=== PATIENT | male | born 1995 ===

== ENCOUNTER 2021-07-06 11:30 | Emergency (ER) | payer SELFPAY ==
[2021-07-06 13:51] VITALS: BP 104/60
[2021-07-07] MEDS ORDERED: MORPHINE 4 MG/1 ML INJ IV ONE (18:04)
[2021-07-07] MEDS ORDERED: ONDANSETRON 4 MG/2 ML INJ IV ONE (18:04)
[2021-07-07] MEDS ORDERED: SODIUM CHLORIDE 0.9% 1000 ML 1,000 ML IV ONE (18:04)
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
[2021-07-07 19:11] LABS: Basophils % (Auto) 0.6 % (0.0-1.8); Eosinophils # (Auto) 0.2 K/mm3 (0.0-0.4); Eosinophils % (Auto) 4.2 % (0.0-4.3); Lymphocytes % (Auto) 35.9 % (13.4-35.0); Mean Corpuscular HGB Conc 31 % (32-34); Mean Corpuscular Volume 87 fl (84-94); Monocytes # (Auto) 0.5 K/mm3 (0.0-0.8); Monocytes % (Auto) 8.4 % (0.0-7.3); Platelet Count 164 K/mm3 (140-440); Red Blood Count 5.33 M/mm3 (3.65-5.03); Red Cell Distribution Width 14.4 % (13.2-15.2)
[2021-07-07 19:20] LABS: Hematocrit 46.5 % (35.5-45.6); Hemoglobin 14.4 gm/dl (11.8-15.2)
[2021-07-07 19:25] LABS: INR 0.96 (0.87-1.13)
[2021-07-07 19:26] LABS: Partial Thromboplastin Time 36.7 Sec. (24.2-36.6)
[2021-07-07 19:29] LABS: Alanine Aminotransferase 41 units/L (7-56); Albumin 4.7 g/dL (3.9-5); Blood Urea Nitrogen 12 mg/dL (9-20); Calcium 9.7 mg/dL (8.4-10.2); Hemolysis Index 110
[2021-07-07 19:33] LABS: BUN/Creatinine Ratio 17
[2021-07-07 20:30] LABS: Bilirubin,Urine NEG (Negative); Blood,Urine NEG (Negative); Color,Urine Yellow (Yellow); Protein,Urine <15 mg/dL mg/dL (Negative); Urobilinogen,Urine < 2.0 mg/dL (<2.0)
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
[2021-07-07] MEDS ORDERED: KETOROLAC 30 MG/1 ML INJ IV ONE (20:52)
== END 2021-07-07 21:41 | disposition home or self-care (01) ==
LOC: ED 11:30
DX: S09.90XA Unspecified injury of head, initial encounter (principal); R10.10 Upper abdominal pain, unspecified; R07.9 Chest pain, unspecified; M79.605 Pain in left leg; R74.8 Abnormal levels of other serum enzymes; V09.9XXA Pedestrian injured in unspecified transport accident, initial encounter; Y93.89 Activity, other specified; Y92.89 Other specified places as the place of occurrence of the external cause; Y99.8 Other external cause status
CPT/HCPCS: 36415; 70450; 71260; 72170; 73552; 74177; 80053; 81001; 82550; 84484; 85025; 85610; 85730; 93005; 96361; 96374; 96375; 99284; Q9967; 80320; G0480